=== PATIENT | male | born 2000 | race Two or more races ===

== ENCOUNTER 2023-12-30 16:08 | Emergency (ER) | payer OTHER, BC ==
[2023-12-30 16:25] VITALS: BP 115/68; PULSE 89; RESP 16; TEMP 97.5; BMI 20.3
== END 2023-12-30 17:04 | disposition home or self-care (01) ==
LOC: JERFT 16:08
DX: M54.2 Cervicalgia (principal); R51.9 Headache, unspecified; V49.50XA Passenger injured in collision with unspecified motor vehicles in traffic accident, initial encounter
CPT/HCPCS: 99283-25